=== PATIENT | female | born 1965 | race Caucasian/White ===

== ENCOUNTER → 2020-05-07 16:40 | Outpatient (CLI) | payer OTHER, SELFPAY ==
[2020-05-07 17:38] LABS: Add Manual Diff / Slide Review NO; Basophils Absolute Auto 100 /uL (0-100); Eosinophils Absolute Auto 200 /uL (0-450); Eosinophils Percent Auto 2.2 % (2-4); Hematocrit 37.1 % (36-46); Hemoglobin 12.8 g/dL (12.0-16.0); Lymphocytes Absolute Auto 2800 /uL (1100-4500); Lymphocytes Percent Auto 39.7 % (25-40); Mean Corpuscular HGB Conc 34.6 % (30-36); Mean Corpuscular Hemoglobin 31.9 PG (26-34); Mean Corpuscular Volume 92.2 fL (80-100); Monocytes Absolute Auto 400 /uL (0-900); Monocytes Percent Auto 5.8 % (3-14); Neutrophils Absolute Auto 3600 /uL (1500-7000); Neutrophils Percent Auto 51.3 % (50-75); Platelet Count 349 X10^3/uL (150-400); Red Blood Cell Count 4.03 X10^6/uL (4.0-5.2); Red Cell Distribution Width 12.7 % (11.6-14.8)
[2020-05-07 17:56] LABS: Alanine Aminotransferase 18 IU/L (<35); Albumin 4.9 g/dL (3.5-5.0); Albumin Globulin Ratio 1.6 (1.0-2.8); Alkaline Phosphatase 81 U/L (38-126); Aspartate Aminotransferase 34 IU/L (14-36); Bilirubin Total 0.3 mg/dL (0.2-1.3); Blood Urea Nitrogen 12 mg/dL (7-17); Carbon Dioxide 29 mmol/L (22-32); Chloride 98 mmol/L (98-107); Cholesterol 269 mg/dL (140-199); Estimated Glomerular Filt Rate > 60.0 mL/min (>60); Globulin 3.1 g/dL (1.7-4.1); Glucose 87 mg/dL (70-100); HEMOLYSIS < 15 (0-50); Lactate Dehydrogenase 535 U/L (313-618); Potassium 4.5 mmol/L (3.4-5.1); Sodium 134 mmol/L (137-145); Triglycerides 93 mg/dL (35-150)
[2020-05-07 18:00] LABS: High Sensitivity CRP - Cardiac 0.4 mg/L (1.0-3.0)
[2020-05-07 18:01] LABS: Erythrocyte Sedimentation Rate 5 MM/HR (0-20)
[2020-05-07 18:07] LABS: HDL Cholesterol 116 mg/dL (40-60); LDL Cholesterol Calculated 134 mg/dL (<100)
== END ==
PROVIDERS: Referring Provider Naturopath; Visit Provider Naturopath
DX: Z00.00 Encounter for general adult medical examination without abnormal findings (principal); Z91.89 Other specified personal risk factors, not elsewhere classified
CPT/HCPCS: 36415; 80053; 80061; 83615; 85025; 85651; 86140

== ENCOUNTER 2022-04-01 14:20 | Emergency (ER) | payer OTHER, SELFPAY ==
[2022-04-01 14:24] VITALS: BP 153/73; PULSE 65; RESP 15; TEMP 36.1; O2SAT 100; BMI 23.1
--- NOTE | 2022-04-01 14:27 | DI.RAD.S_ITS ---
PROCEDURE: XR KNEE RT 3V INDICATIONS: pain in knee,behind knee and calf TECHNIQUE: 3 views of the knee were acquired. COMPARISON: None. FINDINGS: Bones: No fractures or dislocations. No suspicious bony lesions. Soft tissues: No joint effusion. No suspicious soft tissue calcifications. IMPRESSION: No evidence acute bony abnormality of the right knee. If clinical suspicion and/or symptoms persist, further assessment with repeat plain films, or advanced imaging (e.g., CT, MRI, or bone scan) may be helpful for further assessment. Dictated by: Rene Kelsey M.D. on 04/01/2022 at 15:20 Approved by: Rene Kelsey M.D. on 04/01/2022 at 15:36
--- NOTE | 2022-04-01 14:27 | DI.US.S_ITS ---
PROCEDURE: US PERIPH VENOUS LOW EXTREM RT INDICATIONS: PAIN POST KNEE AND CALF TECHNIQUE: Real-time imaging, as well as color and pulse Doppler interrogation, were performed of the lower extremity deep veins from the inguinal ligament to the popliteal fossa. COMPARISON: None. FINDINGS: The common femoral, femoral and popliteal veins are normally compressible, and free of intraluminal thrombus. Color and pulse Doppler demonstrate normal phasic intraluminal flow. There is normal augmentation response to distal compression maneuver. There is a Tracy cyst measuring 3.9 x 2.5 x 1.0 cm. There is a probable 2nd Tracy cyst measuring 4.4 x 2.9 x 0.8 cm. There is a complex fluid collection posterior medially measuring 8.6 x 9.7 x 0.9 cm. IMPRESSION: Possible ruptured Tracy cyst. Negative right lower extremity duplex venous ultrasound for DVT. Dictated by: Rene Kelsey M.D. on 04/01/2022 at 15:51 Approved by: Rene Kelsey M.D. on 04/01/2022 at 15:53
--- NOTE | 2022-04-01 16:22 | PC.NURSE ---
Pt having pain behind right knee since Tuesday,increased swelling of knee and calf. Pt denies SOB,does not take blood thinners
--- NOTE | 2022-04-01 16:56 | ED_ITS ---
HPI - Extremity Problem <ADIS Valera - Last Filed: 04/01/22 19:55> General Chief complaint: Extremity Problem,Nontraumatic Stated complaint: EMS from [place] thinks DVT behind RT knee Time Seen by Provider: 04/01/22 16:47 Source: patient Mode of arrival: Ambulatory History of Present Illness HPI Narrative: This is a 48-year-old female who came over from [facility] via EMS today for progressive swelling to her right lower extremity over the last 4 days without erythema, fever, chills or known injury. She denies weakness or numbness or tingling. Patient states that she is had swelling here and was concerned so she called EMS to bring her to the emergency department because she was not sure if this was a blood clot or something else dangerous. She shortness of breath, chest pain, denies history of blood clots, is not on exogenous hormones. Related Data Previous Rx's Medication Instructions Recorded diclofenac sodium 1 % topical gel 2 g topical QID PRN pain #100 grams 04/01/22 (Arthritis Pain (diclofenac)) Allergies Allergy/AdvReac Type Severity Reaction Status Date / Time dextromethorphan Allergy Verified 04/01/22 14:24 Review of Systems <ADIS Valera - Last Filed: 04/01/22 19:55> Review of Systems ROS Unobtainable: All systems reviewed & are unremarkable except as noted in HPI and below Patient History <ADIS Valera - Last Filed: 04/01/22 19:55> Social History Smoking Status: Unknown if ever smoked Smoking Status: Unknown if ever smoked alcohol intake frequency: holidays/special occasions only Substance Use Type: does not use Exam <ADIS Valera - Last Filed: 04/01/22 19:55> Narrative Exam Narrative: Reviewed vitals signs and nursing notes. General: cooperative, comfortable, in no acute distress, well groomed MSK: moves all extremities, neurovascularly intact, no weakness, normal tone, edema to the right lower extremity and more pronounced to the proximal calf, without erythema, exquisite tenderness, pedal pulses are 2+ and patient has full range of motion no palpable effusion Skin: brisk capillary refill, without pallor or erythema Neuro: normal speech and cognition, A&O x3, ambulatory, clear speech Psych: mental status is grossly normal, congruent mood, normal affect, pleasant and cooperative Initial Vital Signs Initial Vital Signs: Vital Signs Temperature 97.0 F L 04/01/22 14:24 Pulse Rate 65 04/01/22 14:24 Respiratory Rate 15 04/01/22 14:24 Blood Pressure 153/73 H 04/01/22 14:24 Pulse Oximetry 100 04/01/22 14:24 Oxygen Delivery Method 04/01/22 14:24 <Melissa Pritchett DO - Last Filed: 04/05/22 08:44> Initial Vital Signs Initial Vital Signs: Vital Signs Temperature 97.0 F L 04/01/22 14:24 Pulse Rate 65 04/01/22 14:24 Respiratory Rate 15 04/01/22 14:24 Blood Pressure 153/73 H 04/01/22 14:24 Pulse Oximetry 100 04/01/22 14:24 Oxygen Delivery Method 04/01/22 14:24 Scores <ADIS Valera - Last Filed: 04/01/22 19:55> Hollis' Criteria for DVT Active Cancer (Treatment within 6 months): No Bedridden recently >3 days or major surgery within 4 weeks: No Calf Swelling >3cm compared to other leg: No Collateral (nonvericose) superficial veins present: No Entire leg swollen: No Localized tenderness along the deep vein system: No Pitting edema, confined to symtomatic leg: Yes Paralysis, paresis, or recent plaster immobilization of ext: No Previously documented DVT: No Alternative dx to DVT as likely or more likely: Yes Hollis' criteria for DVT: -1 <Melissa Pritchett DO - Last Filed: 04/05/22 08:44> Eren Criteria for DVT Wells' criteria for DVT: -1 Course <ADIS Valera - Last Filed: 04/01/22 19:55> Orders Ordered: ED Orders 04/01/22 14:27 periph venous low extrem rt Stat XR knee RT 3V Stat Vital Signs Vital signs: Vital Signs - 8 hr 04/01/22 14:24 04/01/22 17:06 Temperature 97.0 F L Pulse Rate 65 68 Respiratory Rate 15 Blood Pressure 153/73 H Pulse Oximetry 100 98 Oxygen Delivery Method Room Air Room Air <Melissa C MarkdrissDO - Last Filed: 04/05/22 08:44> Orders Ordered: ED Orders 04/01/22 14:27 US periph venous low extrem rt Stat XR knee RT 3V Stat Vital Signs Vital signs: Vital Signs - 8 hr 04/01/22 14:24 04/01/22 17:06 Temperature 97.0 F L Pulse Rate 65 68 Respiratory Rate 15 Blood Pressure 153/73 H Pulse Oximetry 100 98 Oxygen Delivery Method Room Air Room Air MDM - Extremity (Nontraumatic) <Yoselin Asenciojuan miguel, [employer] ARCHITECT - Last Filed: 04/01/22 19:55> Imaging Data US - DVT: Radiologist's Impression: PROCEDURE:? US PERIPH VENOUS LOW EXTREM RT ? INDICATIONS:? PAIN POST KNEE AND CALF ? TECHNIQUE:? Real-time imaging, as well as color and pulse Doppler interrogation, were performed of the lower extremity deep veins from the inguinal ligament to the popliteal fossa.? ? COMPARISON:? None. ? FINDINGS:? The common femoral, femoral and popliteal veins are normally compressible, and free of intraluminal thrombus.? Color and pulse Doppler demonstrate normal phasic intraluminal flow.? There is normal augmentation response to distal compression maneuver. ? ? There is a Tracy cyst measuring 3.9 x 2.5 x 1.0 cm.? There is a probable 2nd Tracy cyst measuring 4.4 x 2.9 x 0.8 cm.? There is a complex fluid collection posterior medially measuring 8.6 x 9.7 x 0.9 cm. ? IMPRESSION:? Possible ruptured Tracy cyst.? Negative right lower extremity duplex venous ultrasound for DVT. ? ? Dictated by: Rene Kelsey M.D. on 04/01/2022 at 15:51 ? ? Approved by: Rene Kelsey M.D. on 04/01/2022 at 15:53 ? Extremity x-ray #1: Radiologist's Impression: PROCEDURE:? XR KNEE RT 3V ? INDICATIONS:? pain in knee,behind knee and calf ? TECHNIQUE:? 3 views of the knee were acquired.? ? COMPARISON:? None. ? FINDINGS:? ? Bones:? No fractures or dislocations.? No suspicious bony lesions.? ? Soft tissues:? No joint effusion.? No suspicious soft tissue calcifications.? ? ? IMPRESSION:? No evidence acute bony abnormality of the right knee. ? If clinical suspicion and/or symptoms persist, further assessment with repeat plain films, or advanced imaging (e.g., CT, MRI, or bone scan) may be helpful for further assessment. ? Dictated by: Rene Kelsey M.D. on 04/01/2022 at 15:20 ? ? Approved by: Rene Kelsey M.D. on 04/01/2022 at 15:36 ? MDM Narrative Medical decision making narrative: Chief Complaint: Swelling to her right lower extremity his is a 48-year-old female who came over from [facility] via EMS today for progressive swelling to her right lower extremity over the last 4 days without erythema, fever, chills or known injury. She denies weakness or numbness or tingling. Differential diagnoses include but are not limited to: Tracy cyst, knee sprain DVT, superficial vein thrombus, varicose vein, cellulitis I have reviewed the patient's vital signs and nursing notes as well as prior records if available. Independently reviewed imaging including: Knee x-ray and DVT ultrasound which not show evidence blood clot, or osseous abnormality. Shared decision making: with the patient, her DVT ultrasound shows 2 Tracy cysts and 1 that is partially ruptured. She is not have surrounding erythema, ecchymosis, or exquisite tenderness palpation. Recommend rest, cool or warm compresses as tolerated, the gel, Tylenol my ibuprofen, no signs of infection, recommend that she follow-up with her PCP as needed, encourage venous return with elevation and rest. Social considerations that may affect disposition: None Questions are addressed and there is agreement with the plan and for follow-up. Patient is appropriate for outpatient management. MIPS: This encounter doesn't have any diagnosis' associated with MIPS criteria. Discharge Plan Departure Patient Disposition: Home Clinical Impression: Tracy's cyst, ruptured Tracy's cyst Qualifiers: Laterality: right Qualified Code(s): M71.21 - Synovial cyst of popliteal space [Tracy], right knee Instructions: Tracy Cyst Activity Restrictions/Additional Instructions: *You have been diagnosed with multiple Tracy cyst to the posterior of your right knee with evidence of ruptured cyst which eventually happens to all of them. T he risk for infection is quite low. Please follow-up at [facility] if you have worsening pain, numbness or tingling. Please apply topical diclofenac gel, take Tylenol or ibuprofen as needed for pain, continue with elevation and rest and with normal activity this should start to resorb. *What to do: *Please continue to take your regular medications as directed. [x ] New medication prescriptions sent to your pharmacy: [ [facility]] [ ] New medication written as a paper prescription [ ] No new medications given *Please follow up with your primary care provider in 2-3 days, call for an appointment. Let them know you were seen in the Emergency Department and that we asked that you be seen for follow-up. We will electronically transmit a record of today's note if your PCP is in our system *If you do not have a primary care provider please contact [phone] to establish care with one of the [facility] primary care providers. *Return to Emergency Department if you should have any new, worsening, or concerning symptoms, such as [fever greater than 101F, chills, worsening pain, persistent vomiting or other bothersome symptoms]. Prescriptions: New diclofenac sodium [Arthritis Pain (diclofenac)] 1 % gel 2 g topical QID PRN (Reason: pain) Qty: 100 0RF Rx Instructions: Back of knee up to 4 times daily as needed for pain and swelling Referrals: [facility] [Provider Group] Miscellaneous,[facility] [Primary Care Provider] - Low Arriaga MD [Physician] - Stand Alone Forms: Patient Portal/API <Melissa Pritchett DO - Last Filed: 04/05/22 08:44> Cosign ED Attending Jakubature Attestation: I was immediately available in the department for consultation. Documentation has been reviewed.
[2022-04-01 17:06] VITALS: PULSE 68; O2SAT 98
== END 2022-04-01 17:07 | disposition home or self-care (01) ==
PROVIDERS: Emergency Provider Nurse Practitioner Critical Care Medicine
DX: M71.21 Synovial cyst of popliteal space [Baker], right knee (principal)
CPT/HCPCS: 73562; 93971; 99283

== ENCOUNTER → 2022-12-29 08:30 | Outpatient (CLI) | payer OTHER, SELFPAY ==
--- NOTE | 2022-12-29 | DI.RAD.S_ITS ---
PROCEDURE: XR CERVICAL SPINE 4V OR 5V INDICATIONS: NECK PAIN TECHNIQUE: 5 views of the cervical spine were acquired. COMPARISON: None. FINDINGS: Bones: No fractures or dislocations to the T1 level. Straightening of the normal cervical lordosis with mild reversal centered at C5-C6. There is minimal anterolisthesis of C3 on C4 and C4 on C5. There are multilevel degenerative changes of the cervical spine with facet and uncovertebral arthropathy, disc height loss with degenerative endplate changes and spurring. No suspicious bony lesions. There is limited range of motion between flexion and extension, with preserved bony alignment. Soft tissues: Prevertebral soft tissues are normal in thickness. IMPRESSION: Multilevel degenerative changes of the cervical spine with limited range of motion. Dictated by: Napoleon Mckeon M.D. on 12/29/2022 at 10:05 Approved by: Napoleon Mckeon M.D. on 12/29/2022 at 10:06
== END ==
PROVIDERS: Referring Provider Chiropractor; Visit Provider Chiropractor
DX: M47.22 Other spondylosis with radiculopathy, cervical region (principal); M54.2 Cervicalgia; M53.1 Cervicobrachial syndrome
CPT/HCPCS: 72050

== ENCOUNTER → 2023-01-21 12:12 | Outpatient (CLI) | payer OTHER, SELFPAY ==
--- NOTE | 2023-01-21 12:14 | DI.MRI.S_ITS ---
PROCEDURE: MR CERVICAL SPINE WO CON INDICATIONS: increasing loss of function/strength in dominant hand TECHNIQUE: Noncontrast sagittal T1 spin echo and T2 fast spin echo, sagittal STIR, foraminal oblique sagittal T2 fast spin echo, and axial gradient echo or T2 fast spin echo through the cervical spine. COMPARISON: None. FINDINGS: Image quality: Excellent. Alignment and Curvature: There is normal bony alignment. Bone Marrow: Marrow demonstrates normal overall signal. Spinal Cord: Visualized spinal cord has normal size and signal. No cerebellar tonsillar herniation. Paraspinous Soft Tissues: No paravertebral masses. Prevertebral soft tissues are normal in thickness. C2-C3: Mild disc desiccation and height loss. Severe right and moderate left foraminal narrowing. No canal stenosis. C3-C4: Mild disc desiccation and height loss. No canal stenosis. Mild left foraminal stenosis. No right neural foraminal narrowing. C4-C5: Mild disc desiccation and height loss. No canal stenosis. Mild bilateral neural foraminal narrowing. C5-C6: Mild disc desiccation and height loss. Broad-based disc bulge. No canal stenosis. Mild right foraminal narrowing. No left neural foraminal stenosis. C6-C7: Moderate disc desiccation and height loss. Moderate bilateral foraminal stenosis. No canal stenosis. C7-T1: Mild disc desiccation and height loss. Mild bilateral foraminal stenosis. No canal stenosis. IMPRESSION: 1. Multilevel disc desiccation and height loss overall mild to moderate in degree. 2. Severe right foraminal stenosis at C2-3, moderate left foraminal stenosis at C2-3 and moderate bilateral foraminal stenosis at C6-7. Dictated by: Hetal Saucedo M.D. on 01/21/2023 at 13:59 Approved by: Hetal Saucedo M.D. on 01/21/2023 at 14:22
== END ==
PROVIDERS: PCP Physician Assistant Medical; Referring Provider Physician Assistant Medical; Visit Provider Physician Assistant Medical
DX: M48.02 Spinal stenosis, cervical region (principal); R20.0 Anesthesia of skin; R29.898 Other symptoms and signs involving the musculoskeletal system
CPT/HCPCS: 72141

== ENCOUNTER → 2023-05-06 09:43 | Outpatient (CLI) | payer OTHER, SELFPAY ==
--- NOTE | 2023-05-06 09:45 | DI.RAD.S_ITS ---
Bone Density Report Name: CARLYN STEELE Age: 57 Sex: Female Ethnicity: White Date of : 1965 Indication: postmenopausal; screening for osteoporosis; Referring Provider: SULEIMAN CHENG Study: Bone densitometry was performed. Exam Date: May 06, 2023 Accession number: [id number] Bone Density: Region BMD T-score Z-score Classification AP Spine(L1-L4) 0.910 -1.2 0.2 Osteopenia Femoral Neck (Left) 0.787 -0.6 0.7 Normal Total Hip (Left) 0.851 -0.7 0.2 Normal Femoral Neck (Right) 0.710 -1.2 0.0 Osteopenia Total Hip (Right) 0.863 -0.7 0.3 Normal Total Hip Mean 0.857 -0.7 0.3 Normal World Health Organization criteria for BMD impression classify patients as: Normal (T-score at or above -1.0), Osteopenia (T-score between -1.0 and -2.5), or Osteoporosis (T-score at or below -2.5). 10-year Fracture Risk(1): Major Osteoporotic Fracture 7.1% Hip Fracture 0.5% Reported Risk Factors: [place] (), Neck BMD=0.710, BMI=23.2 (1) FRAX(R) Version 3.08. Fracture probability calculated for an untreated patient. Fracture probability may be lower if the patient has received treatment. Impression: The patient has low bone mass, based on the Total Spine T-score. The patient has an estimated ten-year risk of hip fracture of 0.5% and an estimated ten-year risk of major fracture of 7.1%, based on the WHO FRAX algorithm. Discussion: BONE DENSITY IS LOW AT ONE OR MORE SKELETAL SITES. This patient's lowest T-score is low at one or more skeletal sites. It meets the World Health Organization's (WHO) criteria for low bone mass (T-score between -1.0 and -2.5). The patient's 10-year risk of fracture as calculated by FRAX is less than the threshold where pharmacological therapy is recommended by the National Osteoporosis Foundation (NOF). However, all treatment decisions require clinical judgment and consideration of individual patient factors, including patient preferences, comorbidities, previous drug use, risk factors not captured in the FRAX model (e.g., frailty, falls, vitamin D deficiency, increased bone turnover, interval significant decline in bone density) and possible under or overestimation of fracture risk by FRAX. The patient should follow a healthful lifestyle (good nutrition with adequate calcium and vitamin D, and appropriate weight-bearing exercise). Follow-Up: Consider repeating this study in 2 to 3 years to reassess this patient's status, or sooner if there is some new clinical indication. Reported by: LEN STONE M.D. on 05/06/2023 10:27:00 AM.
== END ==
PROVIDERS: PCP Physician Assistant Medical; Referring Provider Family Medicine; Visit Provider Family Medicine
DX: Z78.0 Asymptomatic menopausal state (principal); M85.88 Other specified disorders of bone density and structure, other site
CPT/HCPCS: 77080

== ENCOUNTER → 2023-06-01 08:45 | Outpatient (CLI) | payer OTHER, SELFPAY ==
--- NOTE | 2023-06-01 08:46 | DI.US.S_ITS ---
LIMITED ULTRASOUND OF LEFT BREAST: 06/01/2023 CLINICAL: Intermittent pain in left breast. Comparison is made to exams dated: 06/01/2023 mammogram - [facility] and 03/04/2014 mammogram - [facility]. Real-time ultrasound of the left breast 3 o'clock region was performed. Salter scale images of the real-time examination were reviewed. No significant abnormalities were seen sonographically in the left breast in the region of pain. IMPRESSION: NEGATIVE There is no sonographic evidence of malignancy. Exam findings were conveyed to the patient. Patient is advised to monitor for significant change. Clinical follow-up as needed. A 1 year screening mammogram is recommended. This exam was interpreted at Station ID: [id number]. Electronically Signed By: Thong Hickey M.D. slc/:06/01/2023 09:43:20 letter sent: Normal Exam Ultrasound BI-RADS: 1 Negative
--- NOTE | 2023-06-01 08:46 | DI.MG.S_ITS ---
BILATERAL DIGITAL DIAGNOSTIC MAMMOGRAM 3D/2D: 06/01/2023 CLINICAL: Intermittent pain in left breast. Comparison is made to exams dated: 03/04/2014 mammogram and 05/07/2004 mammogram - [facility]. Both breasts are heterogeneously dense, which may obscure small masses (category c / 51-75% glandular tissue). No significant masses, calcifications, or other findings are seen in either breast. IMPRESSION: INCOMPLETE: NEEDS ADDITIONAL IMAGING EVALUATION No mammographic evidence of malignancy. A targeted ultrasound is recommended and will immediately follow. Based on the Tyrer Cuzick model (a risk assessment model) the patient's lifetime risk is 19.9% and her 10 year risk is 8.3%. According to the ACR, ACS, and NCCN guidelines, an annual breast MRI exam along with mammogram is recommended if the patient's lifetime risk is 20% or greater. This exam was interpreted at Station ID: [id number]. NOTE: For mammograms, a report in lay terms will be sent to the patient. Approximately 15% of breast malignancies will not be visualized mammographically. In the management of a palpable breast mass, a negative mammogram must not discourage biopsy of a clinically suspicious lesion. Electronically Signed By: Thong Hickey M.D. slc/:06/01/2023 09:25:38 ACR BI-RADS Category 0: Incomplete [id number]
== END ==
PROVIDERS: PCP Physician Assistant Medical; Referring Provider Family Medicine; Visit Provider Family Medicine
DX: R92.2 Inconclusive mammogram; N64.4 Mastodynia; R92.333 Mammographic heterogeneous density, bilateral breasts
CPT/HCPCS: 76642; 77066; G0279